=== PATIENT | male | born 1970 ===

== ENCOUNTER 2024-04-18 05:26 | Emergency (ER) | payer SELFPAY ==
[~2024-04-18] VITALS: Ht 162.6 cm; Wt 70.5 kg
[2024-04-18] MEDS ORDERED: FAMOTIDINE 20 MG/2 ML VIAL IVP ONE (05:45)
[2024-04-18] MEDS: SODIUM CHLORIDE 0.9% 1,000 ML IV ONE (05:46)
[2024-04-18] MEDS: ONDANSETRON HCL 4 MG/2 ML VIAL IVP ONE (05:46)
[2024-04-18] MEDS: PANTOPRAZOLE SODIUM 40 MG/VIAL IVP ONE (05:46)
[2024-04-18 06:12] LABS: ALCOHOL, BLOOD (SERUM) 141 mg/dL (0-10); ANION GAP 12 mmol/L (8-16); BASOPHILS % (AUTO) 0.8 % (0.0-2.0); CALCIUM, TOTAL 8.8 mg/dL (8.8-10.5); CARBON DIOXIDE 26 mmol/L (22-29); CHLORIDE 97 mmol/L (98-107); CREATININE 0.84 mg/dL (0.60-1.30); EOSINOPHILS % (AUTO) 0.1 % (1.0-6.0); GLOMERULAR FILTR. RATE CALC > 60 mL/min (>60); GLUCOSE,RANDOM 178 mg/dL (70-110); HEMATOCRIT 46.2 % (41-53); HEMOGLOBIN 15.4 g/dL (13.5-17.5); LYMPHOCYTES # (AUTO) 1.2 K/uL (1.0-4.8); LYMPHOCYTES % (AUTO) 12.1 % (22.0-44.0); MEAN CORPUSCULAR HEMOGLOBIN 30.8 pg (26.0-34.0); MEAN CORPUSCULAR HGB CONC 33.4 G/dL (31.0-37.0); MEAN CORPUSCULAR VOLUME 92 fL (80-100); MONOCYTES # (AUTO) 0.2 K/uL (0.1-1.0); MONOCYTES % (AUTO) 2.3 % (2.0-9.0); NEUTROPHILS # (AUTO) 8.7 K/uL (1.8-7.7); NEUTROPHILS % (AUTO) 84.7 % (40.0-70.0); PLATELET COUNT (AUTO) 318 K/uL (150-450); POTASSIUM 3.7 mmol/L (3.5-5.1); RED BLOOD CELL COUNT(AUTO) 5.02 MIL/uL (4.50-5.90); RED CELL DISTRIBUTION WIDTH 14.2 % (11.5-14.5); SODIUM SERUM 135 mmol/L (136-145); UREA NITROGEN, BLOOD 12 mg/dL (7-18); WHITE BLOOD COUNT (AUTO) 10.3 K/uL (4.5-11.0)
[2024-04-18 06:17] LABS: ALANINE AMINOTRANSFERASE 38 U/L (12-78); ALBUMIN 3.7 g/dL (3.4-5.0); ALKALINE PHOSPHATASE 90 U/L (46-116); ASPARTATE AMINOTRANSFERASE 41 U/L (15-37); BILIRUBIN,TOTAL 0.4 mg/dL (0.1-1.0); LIPASE 37 U/L (16-77); TOTAL PROTEIN, SERUM 7.1 g/dL (6.4-8.2)
[2024-04-18] MEDS: MORPHINE SULFATE 4 MG/ML SYRINGE IVP ONE (06:22)
[2024-04-18] MEDS ORDERED: IOHEXOL 350 MG/ML 100 ML VIAL ONE (06:23)
[2024-04-18 06:26] LABS: TROPONIN I-HIGH SENSITIVITY 4 ng/L (<76)
[2024-04-18 06:34] VITALS: TEMP 98.2
[2024-04-18] MEDS: HALOPERIDOL LACTATE 5 MG/ML VIAL IM ONE (06:48)
[2024-04-18] MEDS: DiphenhydrAMINE HCL 50 MG/ML VIAL IM ONE (06:48)
[2024-04-18 07:23] LABS: PH,URINE DRUG SCREEN 7.5 (5.0-8.0)
[2024-04-18 07:31] LABS: ALCOHOL, URINE DRUG SCREEN POSITIVE (NEGATIVE); AMPHET/METH SCREEN,URINE NEGATIVE (NEGATIVE); BARBITURATE SCREEN, URINE NEGATIVE (NEGATIVE); BENZODIAZEPINES SCREEN,URINE NEGATIVE (NEGATIVE); CANNABINOID SCREEN,URINE POSITIVE (NEGATIVE); COCAINE SCREEN,URINE NEGATIVE (NEGATIVE); METHADONE SCREEN, URINE NEGATIVE (NEGATIVE); OPIATE SCREEN,URINE NEGATIVE (NEGATIVE); PHENCYCLIDINE SCREEN,URINE NEGATIVE (NEGATIVE)
[2024-04-18 10:29] VITALS: BP 120/72; PULSE 84; RESP 16; O2SAT 98
== END 2024-04-18 10:54 | disposition home or self-care (01) ==
LOC: EMS 05:30
DX: F10.129 Alcohol abuse with intoxication, unspecified (principal); F12.90 Cannabis use, unspecified, uncomplicated; F41.9 Anxiety disorder, unspecified; R10.13 Epigastric pain; R44.0 Auditory hallucinations; Y90.6 Blood alcohol level of 120-199 mg/100 ml
CPT/HCPCS: 99291; 74177; 96374; 96375; 71045; 96361; 80048; 80076; 83690; 84484; 85025; 36415; 93005; 96372; 80307; G0480; Q9967; J1200; J1630; J2270; J2405; J2470; J7030